=== PATIENT | female | born 1990 | race Caucasian/White ===

== ENCOUNTER 2018-09-16 17:26 | Emergency (ER) | payer OTHER ==
[~2018-09-16] VITALS: Ht 175.3 cm; Wt 73.3 kg
[2018-09-16 17:28] VITALS: BP 151/96
[2018-09-16] MEDS ORDERED: ONDANSETRON ODT 4 MG ONE (18:08)
[2018-09-16] MEDS ORDERED: ONDANSETRON ODT 4 MG PO ONE (19:00)
[2018-09-16] MEDS ORDERED: DIAZEPAM 5 MG TABLET ONE (19:05)
[2018-09-16] MEDS ORDERED: DIAZEPAM 5 MG TABLET PO ONE (19:30)
== END 2018-09-16 19:31 | disposition home or self-care (01) ==
LOC: ED 19:25
DX: S16.1XXA Strain of muscle, fascia and tendon at neck level, initial encounter (principal); S39.012A Strain of muscle, fascia and tendon of lower back, initial encounter; G89.11 Acute pain due to trauma; V49.09XA Driver injured in collision with other motor vehicles in nontraffic accident, initial encounter; Y93.89 Activity, other specified; Y92.89 Other specified places as the place of occurrence of the external cause; Y99.8 Other external cause status
CPT/HCPCS: 72020; 72050; 72110; 99283; Q0162; 99284